=== PATIENT | female | born 1945 | race Two or more races ===

== ENCOUNTER 2021-05-14 11:20 | Inpatient (IN) | payer SELFPAY ==
[~2021-05-14] VITALS: Ht 165.1 cm; Wt 82.1 kg
--- NOTE | 2021-05-14 12:08 | NUR ---
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
[2021-05-14 12:26] LABS: BASOPHILS % (AUTO) 1 % (0-1); EOSINOPHILS % (AUTO) 0 % (1-7); LYMPHOCYTES % (AUTO) 19 % (22-44); MEAN CORPUSCULAR HGB CONC 32.9 g/dL (32.4-35.8); MEAN PLATELET VOLUME 7.2 fL (7.4-10.4); MONOCYTES % (AUTO) 6 % (2-9); NEUTROPHILS % (AUTO) 74 % (42-75); PLATELET COUNT 243 x10^3/uL (130-400); RED BLOOD COUNT 5.06 x10^6/uL (3.82-5.3); RED CELL DISTRIBUTION WIDTH 14.7 % (9.6-15.2)
[2021-05-14 12:34] LABS: ALANINE AMINOTRANSFERASE 18 U/L (12-78); ALBUMIN 3.4 g/dL (3.4-5.0); ANION GAP 5 mmol/L (5-15); CALCIUM 8.6 mg/dL (8.5-10.1); CHLORIDE 112 mmol/L (98-107)
[2021-05-14 12:39] LABS: ALKALINE PHOSPHATASE 67 U/L (45-117); BILIRUBIN,TOTAL 0.3 mg/dL (0.2-1.0); TOTAL PROTEIN 7.5 g/dL (6.4-8.2)
--- NOTE | 2021-05-14 13:00 | NUR ---
PT IN HOSPITAL GOWN. ORTHOSTATIC VITALS DONE. PT TOLERATED WELL. SON AT BEDSIDE TO TRANSLATE FOR PT. CARDIAC AND VITALS MONITORS ON PT. WILL CONTINUE TO MONITOR.
[2021-05-14] MEDS ORDERED: ASPIRIN 81 MG TABLET CHEW PO ONE (14:00)
[2021-05-14] MEDS ORDERED: SODIUM CHLORIDE FLUSH 10ML SYR IVF ONE (14:00)
--- NOTE | 2021-05-14 14:45 | NUR ---
IV STARTED, PT TO BE ADMITTED TO HOSPITAL.
[2021-05-14] MEDS ORDERED: POLYETHYLENE GLYCOL 17 GM PACKET PO PRN (15:00)
[2021-05-14] MEDS ORDERED: DOCUSATE 100 MG CAPSULE PO PRN (15:00)
[2021-05-14] MEDS ORDERED: PROMETHAZINE 25 MG/ML, 1ML IM PRN (15:00)
[2021-05-14] MEDS ORDERED: morphine SULFATE 10 MG/ML, 1ML IVPush PRN (15:00)
[2021-05-14] MEDS ORDERED: ONDANSETRON ODT 4 MG PO PRN (15:00)
[2021-05-14] MEDS ORDERED: BISACODYL 10 MG SUPP PR PRN (15:00)
[2021-05-14] MEDS ORDERED: HEPARIN 5,000 UNITS/ML, 1ML SQ SCH (15:00)
[2021-05-14] MEDS ORDERED: OXYcodone IR 5MG TABLET PO PRN (15:00)
[2021-05-14] MEDS ORDERED: hydrALAzine 20 MG/ML, 1ML IVPush PRN (15:00)
[2021-05-14] MEDS ORDERED: NITROGLYCERIN 0.4 MG BOTTLE (25 TABS) SL PRN (15:00)
[2021-05-14] MEDS ORDERED: ACETAMINOPHEN 325 MG TABLET PO PRN (15:00)
[2021-05-14] MEDS ORDERED: ONDANSETRON 2MG/ML, 2ML IVPush PRN (15:00)
--- NOTE | 2021-05-14 15:28 | NUR ---
unable to reach floor RN to give report x1
--- NOTE | 2021-05-14 15:34 | NUR ---
REPORT GIVEN TO MAGDA MUKHERJEE
[2021-05-14] MEDS ORDERED: ASPIRIN 81 MG TABLET CHEW ONE (16:13)
[2021-05-14] MEDS: SODIUM CHLORIDE 0.9% 1,000 ML IV SCH ×3 (16:17→17:56)
--- NOTE | 2021-05-14 16:20 | NUR ---
US AT BEDSIDE, PT MEDICATED PER EMAR. SON REMAINS AT BEDSIDE.
[2021-05-14 18:03] VITALS: BP 152/65
[2021-05-14] MEDS ORDERED: ENOXAPARIN 40 MG/0.4 ML SQ SCH (18:30)
[2021-05-14 18:41] LABS: TROPONIN I 0.409 ng/mL (0.000-0.045)
[2021-05-14 19:17] VITALS: BP 153/74
[2021-05-14] MEDS ORDERED: AMLO-211 PO (20:09)
[2021-05-14] MEDS ORDERED: LISI-167 PO (20:10)
[2021-05-14] MEDS ORDERED: HEPARIN 25,000 UNITS/250ML PMX 250 ML IV PRN (20:30)
[2021-05-14] MEDS ORDERED: HEPARIN 5,000 UNITS/ML, 1ML IV ONE (20:30)
[2021-05-14] MEDS ORDERED: HEPARIN 5,000 UNITS/ML, 1ML IV PRN (20:30)
[2021-05-15 01:50] VITALS: BP 156/71
[2021-05-15 04:37] LABS: BASOPHILS % (AUTO) 1 % (0-1); EOSINOPHILS % (AUTO) 2 % (1-7); LYMPHOCYTES % (AUTO) 40 % (22-44); MEAN CORPUSCULAR HEMOGLOBIN 30.2 pg (27.0-34.8); MEAN PLATELET VOLUME 7.5 fL (7.4-10.4); MONOCYTES % (AUTO) 10 % (2-9); NEUTROPHILS % (AUTO) 48 % (42-75); PLATELET COUNT 188 x10^3/uL (130-400); RED BLOOD COUNT 4.78 x10^6/uL (3.82-5.3)
[2021-05-15 04:50] LABS: ALBUMIN 2.5 g/dL (3.4-5.0); ANION GAP 5 mmol/L (5-15); CHLORIDE 112 mmol/L (98-107)
[2021-05-15 04:59] LABS: ALANINE AMINOTRANSFERASE 15 U/L (12-78); ALKALINE PHOSPHATASE 57 U/L (45-117); BILIRUBIN,TOTAL 0.5 mg/dL (0.2-1.0); CHOL/HDL RATIO 4.4; CHOLESTEROL, TOTAL 206 mg/dL (140-239); CREATININE 0.76 mg/dL (0.55-1.02); HDL CHOL % 23 % (28-40); HDL CHOLESTEROL (DIRECT) 47 mg/dL (40-60); LDL CHOLESTEROL,CALCULATED 149 mg/dL (54-169); LDL/HDL RATIO 3.2 (0.5-3.0); TOTAL PROTEIN 6.1 g/dL (6.4-8.2); TRIGLYCERIDES 50 mg/dL (50-200); VLDL CHOLESTEROL 10 mg/dL (0-25)
[2021-05-15] MEDS: ASPIRIN 325 MG TABLET EC PO SCH (06:36)
[2021-05-15 08:14] VITALS: BP 158/73
[2021-05-15] MEDS ORDERED: REGADENOSON 0.4 MG/5 ML SYRINGE ONE (09:06)
[2021-05-15 11:49] VITALS: BP 168/77
[2021-05-15] MEDS: LISINOPRIL 10 MG TABLET PO SCH (11:52)
[2021-05-15] MEDS: AMLODIPINE 5 MG TABLET PO SCH (11:52)
[2021-05-15 13:26] VITALS: BP 124/70
[2021-05-15 19:29] VITALS: BP 137/64
[2021-05-15] MEDS ORDERED: ATORVASTATIN 40 MG TABLET PO SCH (22:30)
[2021-05-15] MEDS ORDERED: ENOXAPARIN 40 MG/0.4 ML SQ SCH (22:30)
[2021-05-15] MEDS: METOPROLOL TARTRATE 25 MG TAB PO SCH (22:56)
[2021-05-16 01:52] VITALS: BP 135/76
[2021-05-16] MEDS: METOPROLOL TARTRATE 25 MG TAB PO SCH (05:54)
[2021-05-16] MEDS: ASPIRIN 325 MG TABLET EC PO SCH (05:54)
[2021-05-16 06:34] LABS: TROPONIN I 0.161 ng/mL (0.000-0.045)
[2021-05-16 08:04] VITALS: BP 136/66
[2021-05-16] MEDS: AMLODIPINE 5 MG TABLET PO SCH (09:31)
[2021-05-16] MEDS: LISINOPRIL 10 MG TABLET PO SCH (09:32)
[2021-05-16] MEDS ORDERED: ATOR40TA78 PO (12:53)
[2021-05-16] MEDS ORDERED: ASPI-1026 PO (12:53)
[2021-05-16] MEDS ORDERED: ACET-1600 PO (12:54)
[2021-05-16 13:24] VITALS: BP 123/71
== END 2021-05-16 16:15 | disposition home or self-care (01) | DRG 281 ==
LOC: ED 14:41 → EDIP 15:00 → UNDOADMIN 15:00 → 5SO 17:26
PROVIDERS: ADMIT Internal Medicine; ATTEND Internal Medicine
PROC: 2W38X1Z Immobilization of Right Upper Extremity using Splint (ICD-10-PCS; principal; 2021-05-14)
DX: I21.4 Non-ST elevation (NSTEMI) myocardial infarction (principal); S52.571A Other intraarticular fracture of lower end of right radius, initial encounter for closed fracture; E11.9 Type 2 diabetes mellitus without complications; I10 Essential (primary) hypertension; Y93.01 Activity, walking, marching and hiking; W18.39XA Other fall on same level, initial encounter; R42 Dizziness and giddiness; Z85.038 Personal history of other malignant neoplasm of large intestine; Z90.49 Acquired absence of other specified parts of digestive tract; Y92.488 Other paved roadways as the place of occurrence of the external cause; Y99.8 Other external cause status
CPT/HCPCS: 36415; 71045; 78452; 80053; 80061; 82962; 83036; 83735; 84100; 84443; 84484; 85025; 85520; 93005; 93017; 93306; 96360; G0378; J1644; J1650; J2785; A9502; J7030